=== PATIENT | male | born 1990 | race Caucasian/White ===

== ENCOUNTER 2018-02-25 13:45 | Emergency (ER) | payer SELFPAY ==
[2018-02-25 15:30] LABS: Calcium Oxalate Crystals- Ur PRESENT (NONE SEEN); Urine Bacteria NONE SEEN /HPF (NONE SEEN); Urine Culture Reflex Order NOT NEEDED; Urine RBC <5 /HPF (NONE SEEN)
[2018-02-25 16:07] LABS: Urine Blood NEGATIVE (NEG); Urine Glucose NEGATIVE (NEG); Urine Protein NEGATIVE (NEG); Urine pH 6.5 (5.0-7.0)
--- NOTE | 2018-02-25 16:52 | RAD REPORT ---
EXAM DESCRIPTION: CT - Stone Protocol - 02/25/2018 4:42 pm CLINICAL HISTORY: Flank pain. ABD PAIN COMPARISON: Abdomen Pelvis W Contrast dated 06/02/2016; Abdomen Pelvis Wo Contrast dated 05/29/2016 TECHNIQUE: Axial images were obtained without oral or IV contrast. Lack of contrast limits solid org an and vascular assessment. The [id number] spans the entirety of the system partially obscuring uppermost abdomen and lung bases. Coronal reformatted images were obtained and reviewed. All CT scans are performed using dose optimization technique as appropriate and may include automated exposure control or mA/KV adjustment according to patient size. FINDINGS: The lower lung hogan are clear. Imaged portions of the liver and spleen show no suspicious findings on non-contrast imaging. The panc reas and adrenal glands are normal. No pathologic lymphadenopathy in the abdomen or pelvis. Punctate left renal caliceal stones are present without hydronephrosis. No right-sided stone or hydro nephrosis. No bowel obstruction, free air, free fluid or abscess. Normal appendix noted. No significant bony abnormality. IMPRESSION: Punctate left nephrolithiasis without hydronephrosis.
--- NOTE | 2018-02-25 17:08 | ER ---
Nurse's Notes [facility] Name: Lex Root Age: 27 yrs Sex: Male : 1990 Arrival Date: 02/25/2018 Time: 13:48 Bed DIS13 Private MD: None, None Diagnosis: Abdominal and pelvic pain Presentation: 02/25 13:52 Presenting complaint: Patient states: suprapubic discomfort and mid back pain x 1 ss month. Transition of care: patient was not received from another setting of care. Onset of symptoms was December 2017. Risk Assessment: Do you want to hurt yourself or someone else? Patient reports no desire to harm self or others. Initial Sepsis Screen: Does the patient meet any 2 criteria? No. Patient's initial sepsis screen is negative. Does the patient have a suspected source of infection? Yes: Dysuria/Frequency/Urgency/UTI. Care prior to arrival: None. 13:52 Method Of Arrival: Ambulatory ss 13:52 Acuity: SUZIE 4 ss Historical: - Allergies: 13:54 No Known Allergies; ss - Home Meds: 13:54 None [Active]; ss - PMHx: 13:54 Kidney stones; ss - PSHx: 13:54 None; ss - Immunization history:: Adult Immunizations unknown. - Social history:: Smoking status: Patient uses tobacco products, smokes one pack cigarettes per day. - Ebola Screening: : Patient denies exposure to infectious person Patient denies travel to an Ebola-affected area in the 21 days before illness onset. Screenin:52 Abuse screen: Denies threats or abuse. Denies injuries from another. Nutritional ss screening: No deficits noted. Tuberculosis screening: Never had TB. Fall Risk None identified. Assessment: 13:52 General: Appears in no apparent distress. comfortable, Behavior is calm, cooperative, ss Denies fever, feeling ill, fatigue, chills. Pain: Complains of pain in suprapubic area, low-mid back. Neuro: Level of Consciousness is awake, alert, obeys commands, Oriented to person, place, time, situation. Cardiovascular: Capillary refill < 3 seconds is brisk in bilateral fingers. Respiratory: Airway is patent Respiratory effort is even, unlabored, Respiratory pattern is regular, symmetrical. GI: Patient currently denies diarrhea, nausea, vomiting. : Denies burning with urination. EENT: Oral mucosa is moist. Throat is clear. Derm: Skin is intact, is healthy with good turgor, Skin is dry, Skin is pink, warm \T\ dry. normal. Musculoskeletal: Circulation, motion, and sensation intact. Range of motion: intact in all extremities, Swelling absent. Vital Signs: 13:54 BP 133 / 89; Pulse 73; Resp 15; Temp 98.0(TE); Pulse Ox 97% on R/A; Height 5 ft. 11 in. ss (180.34 cm); Pain 4/10; ED Course: 13:48 Patient arrived in ED. sb2 13:48 None, None is Private Physician. sb2 13:52 Patient has correct armband on for positive identification. Bed in low position. Call ss light in reach. 13:53 Triage completed. ss 13:54 Arm band placed on right wrist. 14:35 Urine collected: clean catch specimen, lau[facility] 16:03 Kassidy Delgado RN is Primary Nurse. 16:14 Sylvain Acharya PA is PHCP. 8 16:14 Denis Lozano MD is Attending Physician. jr8 16:34 Patient moved to [place]. pa 16:43 CT Stone Protocol In Process Unspecified. EDPR 16:45 CT completed. Patient tolerated procedure well. Patient moved back from [place]. pa 17:15 No provider procedures requiring assistance completed. Patient did not have IV access ss during this emergency room visit. Administered Medications: No medications were administered Outcome: 17:07 Discharge ordered by . 8 17:15 Discharged to home ambulatory. 17:15 Condition: good 17:15 Discharge instructions given to patient, family, Instructed on discharge instructions, follow up and referral plans. medication usage, Demonstrated understanding of instructions, follow-up care, medications. 17:16 Patient left the ED. Signatures: Dispatcher [employer] EDPR Kassidy Delgado RN RN Sylvain Acharya PA PA 8 Seb [place] Deanna 3 Sayra Rodriges sb2
--- NOTE | 2018-02-25 17:09 | EDPHYS ---
Physician Documentation [facility] Name: Lex Root Age: 27 yrs Sex: Male : 1990 Arrival Date: 02/25/2018 Time: 13:48 Bed DIS13 Private MD: None, None ED Physician Denis Lozano HPI: 02/25 16:37 This 27 yrs old Male presents to ER via Ambulatory with complaints of Urinary jr8 Problem/abdominal pain. 16:37 The patient presents with abdominal pain in the left lower quadrant. Onset: The jr8 symptoms/episode began/occurred acutely, yesterday. The symptoms radiate to left back, the left flank. Associated signs and symptoms: none. The symptoms are described as stabbing. Modifying factors: The symptoms are alleviated by nothing, the symptoms are aggravated by nothing. Severity of pain: At its worst the pain was mild in the emergency department the pain has resolved. The patient has experienced similar episodes in the past, a few times. The patient has not recently seen a physician. History of renal stones. Thinks he may have another one . Historical: - Allergies: 13:54 No Known Allergies; ss - Home Meds: 13:54 None [Active]; ss - PMHx: 13:54 Kidney stones; ss - PSHx: 13:54 None; ss - Immunization history:: Adult Immunizations unknown. - Social history:: Smoking status: Patient uses tobacco products, smokes one pack cigarettes per day. - Ebola Screening: : Patient denies exposure to infectious person Patient denies travel to an Ebola-affected area in the 21 days before illness onset. ROS: 16:37 Constitutional: Negative for fever, chills, and weight loss. jr8 16:37 Abdomen/GI: Positive for abdominal pain, nausea, Negative for vomiting, diarrhea, abdominal distension, anorexia, dysphagia, hematemesis, black/tarry stool, rectal pain, rectal bleeding, bowel incontinence, flatulence. 16:37 Back: Positive for flank pain, on the left. 16:37 All other systems are negative. Exam: 16:37 Eyes: Pupils equal round and reactive to light, extra-ocular motions intact. Lids and jr8 lashes normal. Conjunctiva and sclera are non-icteric and not injected. Cornea within normal limits. Periorbital areas with no swelling, redness, or edema. ENT: Nares patent. No nasal discharge, no septal abnormalities noted. Tympanic membranes are normal and external auditory canals are clear. Oropharynx with no redness, swelling, or masses, exudates, or evidence of obstruction, uvula midline. Mucous membranes moist. Neck: Trachea midline, no thyromegaly or masses palpated, and no cervical lymphadenopathy. Supple, full range of motion without nuchal rigidity, or vertebral point tenderness. No Meningismus. Cardiovascular: Regular rate and rhythm with a normal S1 and S2. No gallops, murmurs, or rubs. Normal PMI, no JVD. No pulse deficits. Respiratory: Lungs have equal breath sounds bilaterally, clear to auscultation and percussion. No rales, rhonchi or wheezes noted. No increased work of breathing, no retractions or nasal flaring. Back: No spinal tenderness. No costovertebral tenderness. Full range of motion. Skin: Warm, dry with normal turgor. Normal color with no rashes, no lesions, and no evidence of cellulitis. MS/ Extremity: Pulses equal, no cyanosis. Neurovascular intact. Full, normal range of motion. Neuro: Awake and alert, GCS 15, oriented to person, place, time, and situation. Cranial nerves II-XII grossly intact. Motor strength 5/5 in all extremities. Sensory grossly intact. Cerebellar exam normal. Normal gait. 16:37 Abdomen/GI: Inspection: abdomen appears normal, Bowel sounds: active, all quadrants, Palpation: soft, in all quadrants, mild abdominal tenderness, in the left lower quadrant, mass, is not appreciated, rebound tenderness, is not appreciated, voluntary guarding, is not appreciated, involuntary guarding, is not appreciated, no appreciated organomegaly, Indicators: McBurney's point is not tender, Yan's sign is negative, Rovsing's sign is negative, Liver: no appreciated palpable abnormalities, tenderness, is not appreciated. Vital Signs: 13:54 BP 133 / 89; Pulse 73; Resp 15; Temp 98.0(TE); Pulse Ox 97% on R/A; Height 5 ft. 11 in. ss (180.34 cm); Pain 4/10; MDM: 16:14 Patient medically screened. [facility] 17:05 Data reviewed: vital signs, nurses notes, lab test result(s), radiologic studies, CT jr8 scan. Data interpreted: Pulse oximetry: on room air is 97 %. Interpretation: normal. Counseling: I had a detailed discussion with the patient and/or guardian regarding: the historical points, exam findings, and any diagnostic results supporting the discharge/admit diagnosis, lab results, radiology results, the need for outpatient follow up, a family practitioner, to return to the emergency department if symptoms worsen or persist or if there are any questions or concerns that arise at home. 02/25 14:36 Order name: Urine Microscopic Only; Complete Time: 16:14 ss 02/25 14:36 Order name: Urine Culture 02/25 14:40 Order name: Urine Dipstick--Ancillary (enter results); Complete Time: 16:14 bd 02/25 16:27 Order name: CT Stone Protocol; Complete Time: 16:53 jr8 Administered Medications: No medications were administered Disposition: 02/26 09:24 Co-signature as Attending Physician, Denis Lozano MD I agree with the assessment and louisa plan of care. Disposition: 02/25/18 17:07 Discharged to Home. Impression: Abdominal and pelvic pain. - Condition is Stable. - Discharge Instructions: Abdominal Pain, Adult. - Work release form, Medication Reconciliation Form, Thank You Letter, Antibiotic Education, Prescription Opioid Use form. - Follow up: Private Physician; When: As needed; Reason: Recheck today's complaints, Continuance of care, Re-evaluation by your physician. - Problem is new. - Symptoms are resolved. Signatures: Dispatcher [employer] Denis Guardado MD MD cha Smirch, Shelby, RN RN Sylvain Shaikh PA PA jr8 Corrections: (The following items were deleted from the chart) 02/25 16:41 16:37 Abdomen/GI: Inspection: abdomen appears normal, Bowel sounds: active, all jr8 quadrants, Palpation: soft, in all quadrants, mild abdominal tenderness, in the left lower quadrant, mass, is not appreciated, rebound tenderness, is not appreciated, voluntary guarding, is not appreciated, involuntary guarding, is not appreciated, no appreciated organomegaly, Indicators: McBurney's point is not tender, Yan's sign is negative, Rovsing's sign is negative, Liver: no appreciated palpable abnormalities, tenderness, jr8 17:16 17:07 02/25/2018 17:07 Discharged to Home. Impression: Abdominal and pelvic pain. ss Condition is Stable. Forms are Medication Reconciliation Form, Thank You Letter, Antibiotic Education, Prescription Opioid Use. Follow up: Private Physician; When: As needed; Reason: Recheck today's complaints, Continuance of care, Re-evaluation by your physician. Problem is new. Symptoms are resolved. jr8
[2018-02-25 18:16] VITALS: BP 133/89; TEMP 98; O2SAT 97
== END 2018-02-25 17:16 | disposition home or self-care (01) ==
LOC: ER 13:45
DX: R10.2 Pelvic and perineal pain (principal); F17.210 Nicotine dependence, cigarettes, uncomplicated
CPT/HCPCS: 74176; 76377; 81003; 81015; 87086; 87088; 99284